=== PATIENT | male | born 1945 | race Caucasian/White ===

== ENCOUNTER → 2021-04-19 | Outpatient (CLI) | payer OTHER ==
[~2021-04-19] MED LIST: CENTRUM SILVER1 EAC1 PO; HYDROCHLOROTHIA25 MG PO; JARDIANCE25 MG PO; LISINOPRIL20 MG PO; METFORMIN HCL1000 MG PO; MIRAPEX ER1.5 MG PO; NORCO 7.5-3251 EACH PO; NORVASC10 MG PO; REQUIP0.5 MG PO; VITAMIN B-121000 MCG PO; ZOCOR20 MG PO
== END ==
LOC: HEART 5 14:04
DX: J40 Bronchitis, not specified as acute or chronic (principal)
CPT/HCPCS: 94060; 94729

== ENCOUNTER → 2021-08-02 | Outpatient (CLI) | payer OTHER | LOC: ECHO 07-18 12:15 → EXRD 07-18 13:00 → US 07-18 14:30 | DX: I50.9 Heart failure, unspecified (principal); N17.9 Acute kidney failure, unspecified; N28.1 Cyst of kidney, acquired; N26.1 Atrophy of kidney (terminal); I08.1 Rheumatic disorders of both mitral and tricuspid valves | CPT/HCPCS: ECHO; 93306 ==

== ENCOUNTER → 2021-10-20 | Outpatient (CLI) | payer OTHER ==
[~2021-10-20] MED LIST changes: +AVODART0.5 MG PO; +BUMETANIDE1 MG PO; +FINASTERIDE5 MG PO; +FLOMAX 0.4 MG0.4 MG PO; +HYDROCODON-ACE1 EAC2 PO; +ISOSORBIDE MONO30 MG PO; +METOPROLOL TART25 MG PO; +UROXATRAL10 MG PO
[2021-10-20 11:05] LABS: HEMOGLOBIN 10.8 gm/dl (14.0-17.5); RED BLOOD COUNT 3.55 M/UL (4.20-5.50); WHITE BLOOD COUNT 5.1 K/UL (4.5-11.0)
[2021-10-20 11:39] LABS: BUN/CREATININE RATIO 27 (0-10)
== END ==
LOC: OPSV2 09:54
PROVIDERS: Orthopaedic Surgery
DX: Z01.818 Encounter for other preprocedural examination (principal); M16.12 Unilateral primary osteoarthritis, left hip
CPT/HCPCS: 36415; 80048; 83036; 85027; 87077; 87086; 87186; 93005

== ENCOUNTER → 2021-11-01 | Outpatient (CLI) | payer OTHER ==
[~2021-11-01] MED LIST changes: +CYCLOBENZAPRINE10 MG PO; +ELIQUIS 2.5 MG2.5 MG PO; +ELIQUIS2.5 MG PO; +FEROSUL325 MG PO; +PERCOCET 10-321 EACH PO; +PIOGLITAZONE HC30 MG PO; +SPIRONOLACTONE25 MG PO; +ZOFRAN 4 MG TAB4 MG PO
== END ==
LOC: LAB 09:23
PROVIDERS: Orthopaedic Surgery
DX: Z01.812 Encounter for preprocedural laboratory examination (principal)
CPT/HCPCS: 36415; 80048; 86850; 86900; 86901

== ENCOUNTER 2021-11-02 06:20 | Day surgery (SDC) | payer OTHER ==
[~2021-11-02] VITALS: Ht 182.9 cm; Wt 122.5 kg
[~2021-11-02 06:20] MED LIST changes: -CYCLOBENZAPRINE10 MG PO; -ELIQUIS 2.5 MG2.5 MG PO; -ELIQUIS2.5 MG PO; -FEROSUL325 MG PO; -PERCOCET 10-321 EACH PO; -PIOGLITAZONE HC30 MG PO; -SPIRONOLACTONE25 MG PO; -ZOFRAN 4 MG TAB4 MG PO
[2021-11-02] MEDS ORDERED: ELIQUIS2.5 MG PO (08:46)
[2021-11-02] MEDS ORDERED: PERCOCET 10-321 EACH PO (08:46)
[2021-11-02] MEDS ORDERED: ZOFRAN 4 MG TAB4 MG PO (08:46)
[2021-11-02] MEDS ORDERED: CYCLOBENZAPRINE10 MG PO (08:46)
[2021-11-02] MEDS ORDERED: PIOGLITAZONE HC30 MG PO (18:08)
[2021-11-02] MEDS ORDERED: FEROSUL325 MG PO (18:08)
[2021-11-02] MEDS ORDERED: SPIRONOLACTONE25 MG PO (18:11)
[2021-11-03 07:23] LABS: HEMOGLOBIN 11.2 gm/dl (14.0-17.5); RED BLOOD COUNT 3.65 M/UL (4.20-5.50); WHITE BLOOD COUNT 11.4 K/UL (4.5-11.0)
[2021-11-03] MEDS ORDERED: ELIQUIS 2.5 MG2.5 MG PO (11:32)
--- NOTE | 2021-11-03 11:57 | NUR ---
WHEN REVIEWING PATIENT'S DISCHARGE MEDICATION LIST, RN NOTICED THE ELIQUIS 2.5MG WAS ORDERED FOR EVERY 8 HOURS NEEDED PRN FOR DVT PROPHALAXIS. THE PATIENT'S CORRECT DOSAGE IS ELIQUIS 2.5MG BY MOUTH BID. INSTRUCTED PATIENT AND SPOUSE ON CORRECT DOSAGE OF MEDICATION AND WHY THE MEDICATION IS NEEDED BY THE PATIENT.
--- NOTE | 2021-11-03 13:40 | NUR ---
REPORT CALLED TO [facility] AND SPOKE WITH ELLIOT DANIEL AT [phone].
== END 2021-11-03 13:08 | disposition home or self-care (01) ==
LOC: OR 06:20 → CCU 12:18 → OR 11-03 13:08
PROVIDERS: Orthopaedic Surgery
DX: M16.12 Unilateral primary osteoarthritis, left hip (principal); I11.0 Hypertensive heart disease with heart failure; I50.9 Heart failure, unspecified; E78.5 Hyperlipidemia, unspecified; E11.9 Type 2 diabetes mellitus without complications; G25.81 Restless legs syndrome; R79.89 Other specified abnormal findings of blood chemistry; Z88.8 Allergy status to other drugs, medicaments and biological substances; Z79.899 Other long term (current) drug therapy
CPT/HCPCS: 72170; 73502; 76000; 80048; 83735; 85027; 97116; 97116-GP-CQ; 97161; 97166; 97530-GP-CQ; C1776; J0690; J1100; J1170; J2001; J2270; J2274; J2405; J2704; J2710; J3010; J3370; J7030; J7050